=== PATIENT | male | born 2000 | race Caucasian/White ===

== ENCOUNTER → 2022-07-26 12:39 | Outpatient (CLI) | payer OTHER, SELFPAY ==
--- NOTE | ~2022-07-26 | XR_ITS ---
XR thoracic spine 3V DATE: 07/26/2022 13:03 INDICATION: Mid and low back pain. No injury. TECHNIQUE: AP, lateral, swimmer views COMPARISON: 05/11/2018 MRI thoracic spine FINDINGS: No recent fracture or dislocation or bone destruction. The thoracic pedicles are intact. No paraspinal soft tissue thickening. IMPRESSION: No significant abnormality Reviewed, dictated and finalized at location L. IMPRESSION: No significant abnormality
--- NOTE | ~2022-07-26 | XR_ITS ---
XR lumbar spine min 4V DATE: 07/26/2022 13:03 INDICATION: Mid and low back pain. No injury. TECHNIQUE: AP, lateral, coned lateral lumbosacral views. Bilateral oblique views. COMPARISON: None FINDINGS: There is moderate loss of height at L2-3 interspace and mild/moderate loss of interspace he ight at L4-5 interspace. No fracture or bone destruction. The lumbar pedicles are intact. No spondylolysis or spondylolisthesi s. The sacroiliac joints are intact. IMPRESSION: Moderate loss of interspace height at L2-3 Mild to moderate loss of interspace height at L4-5 Reviewed, dictated and finalized at location L.
== END ==
PROVIDERS: PCP Internal Medicine
DX: M53.84 Other specified dorsopathies, thoracic region (principal); M53.86 Other specified dorsopathies, lumbar region
CPT/HCPCS: 72072; 72110

== ENCOUNTER 2022-08-05 17:14 | Emergency (ER) | payer OTHER, SELFPAY ==
[2022-08-05 17:27] VITALS: BP 131/77; PULSE 128; RESP 16; TEMP 36.5; O2SAT 99
--- NOTE | 2022-08-05 17:29 | ED.URI ---
HPI - URI/Sore Throat General Chief Complaint: Upper Respiratory Infection Stated Complaint: SORE THROAT Time Seen by Provider: 08/05/22 17:30 Source: patient Mode of arrival: ambulatory Limitations: no limitations History of Present Illness HPI Narrative: 21-year-old male presents with complaint of sore throat and fatigue starting today. Patient is concerned he has strep throat. States throat hurts ?really bad ?. No other symptoms today. All systems reviewed and negative except as noted above. Related Data Home Medications Medication Instructions Recorded Confirmed famotidine 20 mg tablet 20 mg PO BID 02/15/22 08/05/22 Allergies Allergy/AdvReac Type Severity Reaction Status Date / Time Penicillins Allergy Unknown Urticaria Verified 08/05/22 17:21 Review of Systems Review of Systems: CONSTITUTIONAL: Denies fever, chills, or sweats. Reports fatigue. EYES: Denies visual changes, redness, or discharge. ENT: Denies rhinorrhea, congestion. Reports sore throat. Denies otalgia. CARDIOVASCULAR: Denies chest pain, palpitations, or edema. RESPIRATORY: Denies cough or dyspnea. GASTROINTESTINAL: Denies abdominal pain, nausea, vomiting, or diarrhea. GENITOURINARY: Denies dysuria or hematuria. SKIN: Denies rash or itching. MUSCULOSKELETAL: Denies back pain, joint pain, or myalgia. NEUROLOGIC: Denies headache, numbness, or weakness. PSYCHIATRIC: Denies anxiety or depression. All other systems reviewed are negative, except as documented in HPI. [facility], [facility] Past Medical History Medical History (Updated 08/05/22 @ 17:38 by Cuca Collazo NP) Attention deficit hyperactivity disorder (ADHD), combined type, moderate Broken back 01/2021 Chronic anxiety Chronic depression Compulsive overeating Fatigue Insomnia Substance abuse, daily use Traumatic compression fracture of L5 vertebra (02/10/21) mild compression fracture L5 vertebrae with 20% loss of vertebral height Family History Family History (Updated 02/15/22 @ 13:31 by Jolie Guido CMA) Grandparent Diabetes mellitus Family history of hypercholesterolemia Depression Hypertension Malignant neoplasm of prostate Family history of lymphoma Father Family history of hypercholesterolemia Family history of mental disorder Hypertension Mother Patient's mother is in good health Social History Social History (Updated 02/15/22 @ 13:31 by Jolie Guiod CMA) Smoking status: Never smoker Alcohol intake: former Substance use: current Substance use type: marijuana Comments At time of signature, agree with nursing past medical, surgical, social and family history. There is no relevant family history pertinent to the presenting complaint. Exam Narrative: GENERAL: This is a well-nourished, well-developed patient, in no apparent distress. HEAD: normocephalic, atraumatic. EYES: PERRL. Sclera clear/white. Vision is grossly intact. EARS: External ears normal, auditory canals clear and without drainage, TMs normal without perforation. Hearing grossly intact. NOSE: External nose normal with no obvious nasal discharge, nares without redness, no rhinorrhea. THROAT: Mucous membranes moist, erythematous, swollen. Mild exudates. Tonsils 1+ bilaterally. NECK: Neck supple, non-tender without lymphadenopathy, masses or thyromegaly. CARDIOVASCULAR: Regular rate and rhythm without murmurs, gallops, or rubs. RESPIRATORY: Clear to auscultation. Breath sounds equal bilaterally. No wheezes, rales, or rhonchi. SKIN: warm, Dry, intact with no suspicious lesions or rash, good texture and turgor. NEURO: awake, alert, and oriented to person, place and time. There were no obvious focal neurologic abnormalities. EXTREMITIES: No joint tenderness, effusion, or edema noted. Course Course Level of Care: Express Care Visit Vital Signs Vital signs: Vital Signs Temperature 36.5 C 08/05/22 17:27 Pulse Rate 128 H 08/05/22 17:27 Respiratory Rate 16 08/05/22 17
== END 2022-08-05 17:44 | disposition home or self-care (01) ==
PROVIDERS: Emergency Provider Nurse Practitioner Family; PCP Internal Medicine
DX: J02.0 Streptococcal pharyngitis (principal)
CPT/HCPCS: 87880; 99213; G0463

== ENCOUNTER 2022-08-14 16:37 | Emergency (ER) | payer OTHER, SELFPAY ==
--- NOTE | 2022-08-14 16:44 | ED.URI ---
HPI - URI/Sore Throat General Chief Complaint: Upper Respiratory Infection Stated Complaint: sore throat,headache,fatigue,nausea Time Seen by Provider: 08/14/22 16:44 Source: patient Mode of arrival: ambulatory Limitations: no limitations History of Present Illness HPI Narrative: 22-year-old male presents with complaint of sore throat, fatigue, body aches, chills, headache started today. Afebrile. Reports that he had strep approximately 1 week ago. Took azithromycin. Is now concerned that he may have mono. No known exposure but just having sore throat again concern to him. Has never had mono before. Denies nausea vomiting diarrhea. All systems reviewed and negative except as noted above. Related Data Home Medications Medication Instructions Recorded Confirmed famotidine 20 mg tablet 20 mg PO BID 02/15/22 08/05/22 Allergies Allergy/AdvReac Type Severity Reaction Status Date / Time Penicillins Allergy Unknown Urticaria Verified 08/14/22 16:48 Review of Systems Review of Systems: CONSTITUTIONAL: Denies fever. Reports chills, or sweats. EYES: Denies visual changes, redness, or discharge. ENT: Denies rhinorrhea, congestion. Reports sore throat. Denies otalgia. CARDIOVASCULAR: Denies chest pain, palpitations, or edema. RESPIRATORY: Denies cough or dyspnea. GASTROINTESTINAL: Denies abdominal pain, nausea, vomiting, or diarrhea. GENITOURINARY: Denies dysuria or hematuria. SKIN: Denies rash or itching. MUSCULOSKELETAL: Denies back pain, joint pain. Reports myalgia. NEUROLOGIC: Reports headache. Denies numbness, or weakness. PSYCHIATRIC: Denies anxiety or depression. All other systems reviewed are negative, except as documented in HPI. [facility]LY [facility] Past Medical History Medical History (Updated 08/14/22 @ 17:11 by Cuca Collazo NP) Attention deficit hyperactivity disorder (ADHD), combined type, moderate Broken back 01/2021 Chronic anxiety Chronic depression Compulsive overeating Fatigue Insomnia Substance abuse, daily use Traumatic compression fracture of L5 vertebra (02/10/21) mild compression fracture L5 vertebrae with 20% loss of vertebral height Family History Family History (Updated 02/15/22 @ 13:31 by Jolie Guido [facility]) Grandparent Diabetes mellitus Family history of hypercholesterolemia Depression Hypertension Malignant neoplasm of prostate Family history of lymphoma Father Family history of hypercholesterolemia Family history of mental disorder Hypertension Mother Patient's mother is in good health Social History Social History (Updated 02/15/22 @ 13:31 by Jolie Guido [facility]) Smoking status: Never smoker Alcohol intake: former Substance use: current Substance use type: marijuana Comments At time of signature, agree with nursing past medical, surgical, social and family history. There is no relevant family history pertinent to the presenting complaint. Exam Narrative: GENERAL: This is a well-nourished, well-developed patient. Patient is ill-appearing but in no distress. HEAD: normocephalic, atraumatic. EYES: PERRL. Sclera clear/white. Vision is grossly intact. EARS: External ears normal, auditory canals clear and without drainage, TMs normal without perforation. Hearing grossly intact. NOSE: External nose normal with no obvious nasal discharge, nares without redness, no rhinorrhea. THROAT: Mucous membranes moist, erythematous to posterior pharynx with swelling. No exudates. NECK: Neck supple, non-tender without lymphadenopathy, masses or thyromegaly. CARDIOVASCULAR: Regular rate and rhythm without murmurs, gallops, or rubs. RESPIRATORY: Clear to auscultation. Breath sounds equal bilaterally. No wheezes, rales, or rhonchi. SKIN: warm, Dry, intact with no suspicious lesions or rash, good texture and turgor. NEURO: awake, alert, and oriented to person, place and time. There were no obvious focal neurologic abnormalities. EXTREMITIES: No joint tenderness, effu
[2022-08-14 16:45] VITALS: BP 128/94; PULSE 100; RESP 16; TEMP 37.2; O2SAT 100
== END 2022-08-14 17:12 | disposition home or self-care (01) ==
PROVIDERS: Emergency Provider Nurse Practitioner Family; PCP Internal Medicine
DX: J02.9 Acute pharyngitis, unspecified (principal); F12.90 Cannabis use, unspecified, uncomplicated
CPT/HCPCS: 36416; 86308; 87081; 87804; 87880; 99213; G0463

== ENCOUNTER 2022-08-16 15:19 | Emergency (ER) | payer OTHER, SELFPAY ==
[2022-08-16 15:27] VITALS: BP 152/93; PULSE 100; RESP 16; TEMP 36.4; O2SAT 100
--- NOTE | 2022-08-16 15:59 | ED.URI ---
HPI - URI/Sore Throat General Chief Complaint: Upper Respiratory Infection Stated Complaint: HEADACHE/TIRED/SORE THROAT/NAUSEA/BODY ACHES Time Seen by Provider: 08/16/22 15:59 Source: patient and RN notes reviewed Mode of arrival: ambulatory Limitations: no limitations History of Present Illness HPI Narrative: 22-year-old male presents with concern for 2 week history of sore throat, headache, nausea, body aches. Reports he was treated with azithromycin for positive strep test the beginning of his illness, his symptoms did not improve, he was then started on cefdinir. Reports he is assisted through that in his symptoms are not improving. He reports he has been taking antihistamine without relief. 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 MD elicited complaint: sore throat and nasal congestion Related Data Home Medications Medication Instructions Recorded Confirmed famotidine 20 mg tablet 20 mg PO BID 02/15/22 08/05/22 Allergies Allergy/AdvReac Type Severity Reaction Status Date / Time Penicillins Allergy Unknown Urticaria Verified 08/14/22 16:48 Review of Systems Review of Systems: CONSTITUTIONAL: Denies malaise, chills, sweats, or fever. Reports fatigue EYES: Denies visual changes, redness, or discharge. ENT: Reports rhinorrhea, congestion, sore throat. Denies sinus pain, otalgia CARDIOVASCULAR: Denies chest pain, palpitations, or edema. RESPIRATORY: Reports cough. Denies dyspnea. GASTROINTESTINAL: Denies abdominal pain, nausea, vomiting, diarrhea SKIN: Denies rash or itching. MUSCULOSKELETAL: Reports myalgia. NEUROLOGIC: Reports headache. All systems reviewed & are unremarkable except as noted in HPI and below PMFSH Past Medical History Medical History (Updated 08/16/22 @ 16:26 by Rosa Malcolm NP) Attention deficit hyperactivity disorder (ADHD), combined type, moderate Broken back 01/2021 Chronic anxiety Chronic depression Compulsive overeating Fatigue Insomnia Substance abuse, daily use Traumatic compression fracture of L5 vertebra (02/10/21) mild compression fracture L5 vertebrae with 20% loss of vertebral height Family History Family History (Updated 02/15/22 @ 13:31 by Jolie Guido CMA) Grandparent Diabetes mellitus Family history of hypercholesterolemia Depression Hypertension Malignant neoplasm of prostate Family history of lymphoma Father Family history of hypercholesterolemia Family history of mental disorder Hypertension Mother Patient's mother is in good health Social History Social History (Updated 02/15/22 @ 13:31 by Jolie Guido [facility]) Smoking status: Never smoker Alcohol intake: former Substance use: current Substance use type: marijuana Comments At time of signature, agree with nursing past medical, surgical, social and family history. There is no relevant family history pertinent to the presenting complaint Exam Narrative: GENERAL: Mild toxic appearing and in no acute distress. HEAD: Normocephalic EYES: PERRLA, conjunctivae clear ENT: Nares clear, turbinates edematous and erythematous, clear discharge. Mucous membranes moist. TM pearly sorensen with dull light reflex bilaterally; no tragal tenderness. Oropharynx not erythematous without lesions. Tonsils not enlarged and without exudate, no drooling, no hoarseness, no trismus, uvula midline. NECK: Supple. No lymphadenopathy CHEST: Clear to auscultation, breath sounds equal. No wheezing, rhonchi, rales, or stridor. No respiratory distress, speaks in full sentences. HEART: Regular rate and rhythm. No murmur heard. SKIN: Warm, dry, no rash. NEURO: Alert and oriented x3. PSYCH: Normal mood and affect Course Course Emergency Course: Patient is aware of diagnosis, understands and agrees to treatment plan. Anticipatory guidance given. Patient agrees to follow-up as directed and is aware of reasons to seek care at the emergency department. Portions of this record may have been created with voice recognition
== END 2022-08-16 16:36 | disposition home or self-care (01) ==
PROVIDERS: Emergency Provider Nurse Practitioner; PCP Internal Medicine
DX: J32.9 Chronic sinusitis, unspecified (principal); J40 Bronchitis, not specified as acute or chronic; Z20.822 Contact with and (suspected) exposure to COVID-19
CPT/HCPCS: 36416; 86308; 87426; 99213; C9803; G0463

== ENCOUNTER 2022-11-29 09:01 | Emergency (ER) | payer OTHER, SELFPAY ==
--- NOTE | 2022-11-29 09:12 | ED.URI ---
HPI - URI/Sore Throat General Chief Complaint: Upper Respiratory Infection Stated Complaint: Sinus infection Source: patient and RN notes reviewed History of Present Illness HPI Narrative: 22 yo M presents to urgent care with complaints of congestion, bilateral ear pressure and popping. Pt states his symptoms started 2 days ago and he had a sore throat at that time but denies any today. Reports some diarrhea. Reports more of a cough and some SOB but states he has asthma and takes an inhaler which helps with this. Denies any fevers, chills, N/V, or chest pain. Pt has been taking Dayquil and Nyquil at home. Related Data Home Medications Medication Instructions Recorded Confirmed famotidine 20 mg tablet 20 mg PO BID 02/15/22 11/29/22 Allergies Allergy/AdvReac Type Severity Reaction Status Date / Time Penicillins Allergy Unknown Urticaria Verified 11/29/22 09:20 Review of Systems Review of Systems: Pertinent positives and pertinent negatives per HPI. [facility] Past Medical History Medical History (Updated 11/29/22 @ 09:24 by Consuelo Paredes, ROSALVA) Attention deficit hyperactivity disorder (ADHD), combined type, moderate Broken back 01/2021 Chronic anxiety Chronic depression Compulsive overeating Essential hypertension Fatigue History of substance abuse Hypogonadism male Insomnia Obesity (BMI 30.0-34.9) Substance abuse, daily use Traumatic compression fracture of L5 vertebra (02/10/21) mild compression fracture L5 vertebrae with 20% loss of vertebral height Family History Family History (Reviewed 10/24/22 @ 14:58 by Colleen Jackson [facility] [address]) Grandparent Diabetes mellitus Family history of hypercholesterolemia Depression Hypertension Malignant neoplasm of prostate Family history of lymphoma Father Family history of hypercholesterolemia Family history of mental disorder Hypertension Mother Patient's mother is in good health Social History Social History (Reviewed 10/24/22 @ 14:58 by Colleen Jackson [facility]) Smoking status: Never smoker Alcohol intake: former Substance use: current Substance use type: marijuana Lack of Transportation: No Lack of Food: Never True Current Housing: I Have Housing Concerned About Future Housing: No Difficulty Paying Gas/Electric Bills: No Difficulty Paying for Meds: No Currently Unemployed: No Education: Bachelor's Degree Difficulty w/ Childcare or Family Care: No Comments At the time of my signature, I reviewed and agree with the nursing past medical, surgical, social, and family history. There is no relevant family history pertinent to the patient complaint. Exam Narrative: GENERAL: This is a well-nourished, well-developed patient, in no apparent distress. HEAD: normocephalic, atraumatic. EYES: Sclera clear/white. Vision is grossly intact. EARS: External ears normal, auditory canals clear and without drainage, TMs normal without perforation. Hearing grossly intact. NOSE: External nose normal with no obvious nasal discharge, nares without redness, no rhinorrhea. THROAT: Mucous membranes moist, posterior pharynx clear. NECK: Neck supple, non-tender without lymphadenopathy, masses or thyromegaly. CARDIOVASCULAR: Regular rate and rhythm without murmurs, gallops, or rubs. RESPIRATORY: Clear to auscultation. Breath sounds equal bilaterally. No wheezes, rales, or rhonchi. GASTROINTESTINAL: Abdomen soft, non-tender, nondistended. Bowel sounds are active. No hepato-splenomegaly, or palpable masses. No guarding. SKIN: warm, intact with no suspicious lesions or rash, good texture and turgor. NEURO: awake, alert, and oriented to person, place and time. There were no obvious focal neurologic abnormalities. Course Course Level of Care: Express Care Visit Vital Signs Vital signs: reviewed MDM - URI/Sore Throat MDM Narrative Medical decision making narrative: Viral illness may last between 7-12days; antibiotic is NOT recommende
[2022-11-29 09:13] VITALS: BP 152/91; PULSE 99; RESP 16; TEMP 36.2; O2SAT 97
[2022-11-29 09:15] VITALS: BP 139/84
== END 2022-11-29 09:26 | disposition home or self-care (01) ==
PROVIDERS: Emergency Provider Nurse Practitioner Family; PCP Internal Medicine
DX: J06.9 Acute upper respiratory infection, unspecified (principal); I10 Essential (primary) hypertension; E66.9 Obesity, unspecified; Z68.23 Body mass index [BMI] 23.0-23.9, adult; F12.90 Cannabis use, unspecified, uncomplicated
CPT/HCPCS: 99213; G0463

== ENCOUNTER 2023-01-18 08:25 | Outpatient (CLI) | payer OTHER, SELFPAY ==
--- NOTE | 2023-01-31 17:16 | WPDHOMESLEEP ---
Sleep Study - Home Unattended Date of Study: 01/18/23 Ordering Provider: Yovany Naik DO Interpreting Provider: Lenora York DO Home Sleep Study Type: Watch PAT Height: 1.91 m Weight: 120.202 kg Body Mass Index: 33.1 Neck Circumference (inches): 17 Claunch: 16 Reason for Sleep Study Daytime hypersomnia Sleep History The patient is a 22-year-old male that had a sleep study ordered by his primary care physician for evaluation of sleep apnea. The patient constantly awakens from sleep short of breath. He frequently awakens at night with heartburn, belching or cough. He denies snoring. He occasionally has trouble sleeping when he has a cold. He denies waking up gasping for air throughout the night. He frequently has breathing problems at night observed by himself or others. He frequently sweats excessively at night. He occasionally has heart palpitations or irregular heartbeats during the night. He frequently falls asleep during the day but never while driving. He denies cataplexy. He frequently has trouble at school or work due to sleepiness. He rarely feels unable to move while waking up or falling asleep. He constantly experiences vivid dreamlike scenes upon awakening or falling asleep. He occasionally feels afraid of going to sleep. He frequently has nightmares and frequently remembers his dreams. He frequently has thoughts racing through his mind. He rarely feels sad or depressed. He constantly has anxiety. He constantly has muscular tension. He occasionally notices parts of his body jerk. He occasionally kicks during the night. He rarely has crawling and aching feelings in his legs and rarely has leg pain during the night. He is unsure if he grinds his teeth during sleep. He occasionally awakens with morning jaw pain. He is constantly bothered by pain during the day but rarely awakened by pain during the night. He frequently wakes up feeling stiff in the morning. He occasionally wakes up with sore or achy muscles. He frequently wakes up with pain in the neck, spine or other joints. He goes to bed between 10-10:30 p.m. on weekdays and at 11:00 p.m. on the weekends. It takes him 20 minutes to fall asleep. He wakes up twice throughout the night to urinate and use nicotine. He is able to fall back asleep within 5 minutes are up to an hour. He wakes up at 6:00 a.m. on weekdays and at 6:30 a.m. on the weekends. He typically gets 6-9 hours of sleep per night. He will stay in bed for 30-60 minutes after waking up in the morning. He currently lives with his parents. He denies consuming any caffeinated beverages within 2 hours of bedtime. He denies engaging in physical exercise before bedtime. He will occasionally read before falling asleep. He denies watching television before falling asleep. He will take naps in the afternoon or the evening but they are not refreshing. He consumes 2-3 caffeinated beverages per day. He currently uses tobacco free nicotine patches. He denies alcohol and recreational drug use. [facility] Past Medical History Medical History Attention deficit hyperactivity disorder (ADHD), combined type, moderate Broken back 01/2021 Chronic anxiety Chronic depression Compulsive overeating Essential hypertension Fatigue History of substance abuse Hypogonadism male Insomnia Obesity (BMI 30.0-34.9) Substance abuse, daily use Traumatic compression fracture of L5 vertebra (02/10/21) mild compression fracture L5 vertebrae with 20% loss of vertebral height Family History Family History Grandparent Diabetes mellitus Family history of hypercholesterolemia Depression Hypertension Malignant neoplasm of prostate Family history of lymphoma Father Family history of hypercholesterolemia Family history of mental disorder Hypertension Mother Patient's mother is in good he
[2023-01-31 17:24] VITALS: BMI 33.1
== END 2023-01-27 12:10 | disposition home or self-care (01) ==
LOC: ANHCSM 08:29
PROVIDERS: PCP Internal Medicine; Visit Provider Internal Medicine
DX: G47.19 Other hypersomnia (principal); R53.83 Other fatigue; G47.33 Obstructive sleep apnea (adult) (pediatric)
CPT/HCPCS: 95800

== ENCOUNTER 2023-01-20 10:13 | Emergency (ER) | payer OTHER, SELFPAY ==
--- NOTE | 2023-01-20 10:24 | ED.URI ---
HPI - URI/Sore Throat General Chief Complaint: Upper Respiratory Infection Stated Complaint: Strep symptoms Source: patient and RN notes reviewed History of Present Illness HPI Narrative: 22 yo M presents to urgent care with complaints of a sore throat, congestion, and SOB since yesterday. States his SOB is constant. Pt states he has had a right ear discomfort for weeks. Denies any known fevers or chills but admits to feeling more sweaty than normal. Denies any N/V/D, chest pain, or other symptoms. Pt states he took his inhaler this morning for his SOB with minimal relief. Related Data Home Medications Medication Instructions Recorded Confirmed clomiphene citrate 50 mg tablet 50 mg PO EVERY OTHER DAY 01/20/23 01/20/23 (Clomid) esomeprazole magnesium 20 mg 20 mg PO DAILY 01/20/23 01/20/23 capsule,delayed release (Nexium) loratadine 10 mg tablet (Claritin) 10 mg PO DAILY 01/20/23 01/20/23 Allergies Allergy/AdvReac Type Severity Reaction Status Date / Time Penicillins Allergy Unknown Urticaria Verified 01/20/23 10:23 Review of Systems Review of Systems: Pertinent positives and pertinent negatives per HPI. [facility] Past Medical History Medical History (Updated 01/20/23 @ 10:42 by Consuelo Paredes APRN) Attention deficit hyperactivity disorder (ADHD), combined type, moderate Broken back 01/2021 Chronic anxiety Chronic depression Compulsive overeating Essential hypertension Fatigue History of substance abuse Hypogonadism male Insomnia Obesity (BMI 30.0-34.9) Substance abuse, daily use Traumatic compression fracture of L5 vertebra (02/10/21) mild compression fracture L5 vertebrae with 20% loss of vertebral height Family History Family History Grandparent Diabetes mellitus Family history of hypercholesterolemia Depression Hypertension Malignant neoplasm of prostate Family history of lymphoma Father Family history of hypercholesterolemia Family history of mental disorder Hypertension Mother Patient's mother is in good health Social History Social History Smoking status: Never smoker Alcohol intake: former Substance use: current Substance use type: marijuana Lack of Transportation: No Lack of Food: Never True Current Housing: I Have Housing Concerned About Future Housing: No Difficulty Paying Gas/Electric Bills: No Difficulty Paying for Meds: No Currently Unemployed: No Education: Bachelor's Degree Difficulty w/ Childcare or Family Care: No Comments At the time of my signature, I reviewed and agree with the nursing past medical, surgical, social, and family history. There is no relevant family history pertinent to the patient complaint. Exam Narrative: GENERAL: This is a well-nourished, well-developed patient, in no apparent distress. HEAD: normocephalic, atraumatic. EYES: Sclera clear/white. Vision is grossly intact. EARS: External ears normal, auditory canals clear and without drainage, TMs normal without perforation. Hearing grossly intact. NOSE: External nose normal with no obvious nasal discharge, nares without redness, no rhinorrhea. THROAT: Mucous membranes moist, posterior pharynx clear. NECK: Neck supple, non-tender without lymphadenopathy, masses or thyromegaly. CARDIOVASCULAR: Regular rate and rhythm without murmurs, gallops, or rubs. RESPIRATORY: Clear to auscultation. Breath sounds equal bilaterally. No wheezes, rales, or rhonchi. SKIN: warm, intact with no suspicious lesions or rash, good texture and turgor. NEURO: awake, alert, and oriented to person, place and time. There were no obvious focal neurologic abnormalities. Course Course Level of Care: Express Care Visit Vital Signs Vital signs: Vital Signs Temperature 96.7 F L 01/20/23 10:31 Pulse Rate 114 H 01/20/23 10:31 Respiratory Rate 16 01/20/23 1
[2023-01-20 10:31] VITALS: BP 147/95; PULSE 114; RESP 16; TEMP 35.9; O2SAT 98
== END 2023-01-20 10:45 | disposition home or self-care (01) ==
PROVIDERS: Emergency Provider Nurse Practitioner Family; PCP Internal Medicine
DX: J02.9 Acute pharyngitis, unspecified (principal); J45.909 Unspecified asthma, uncomplicated; F12.90 Cannabis use, unspecified, uncomplicated; I10 Essential (primary) hypertension; E66.9 Obesity, unspecified; Z68.33 Body mass index [BMI] 33.0-33.9, adult
CPT/HCPCS: 87081; 87880; 99213; G0463

== ENCOUNTER 2023-01-30 11:30 | Emergency (ER) | payer OTHER, SELFPAY ==
[2023-01-30 11:39] VITALS: BP 120/97; PULSE 105; RESP 18; TEMP 36.3; O2SAT 99
--- NOTE | 2023-01-30 12:38 | ED.URI ---
HPI - URI/Sore Throat General Chief Complaint: Upper Respiratory Infection Stated Complaint: Headache;Sore Throat;Body ache Time Seen by Provider: 01/30/23 12:30 Source: patient, RN notes reviewed and old records reviewed Mode of arrival: ambulatory Limitations: no limitations History of Present Illness HPI Narrative: 22 year old male who presents to [facility] care with complaints of headache, sore throat and body aches and fatigue since Monday. Patient reports that he was seen previously on 01/20/2023 and was tested for strep with it being negative, received some prednisone and took medication and felt better then his symptoms started again yesterday. He reports that he has been taking Tylenol,Ibuprofen Claritin and Sudafed daily. MD elicited complaint: sore throat and other (headache, fatigue) Onset (ago): day(s) (day 2) Pain scale (0-10): 3 Able to tolerate fluids by mouth: Yes Treatments prior to arrival: acetaminophen, ibuprofen and other (claritin and sudafed) Related Data Home Medications Medication Instructions Recorded Confirmed clomiphene citrate 50 mg tablet 50 mg PO EVERY OTHER DAY 01/20/23 01/30/23 (Clomid) esomeprazole magnesium 20 mg 20 mg PO DAILY 01/20/23 01/30/23 capsule,delayed release (Nexium) loratadine 10 mg tablet (Claritin) 10 mg PO DAILY 01/20/23 01/30/23 Allergies Allergy/AdvReac Type Severity Reaction Status Date / Time Penicillins Allergy Unknown Urticaria Verified 01/30/23 11:41 Review of Systems Review of Systems: CONSTITUTIONAL:Reports malaise, chills, sweats, or fever. EYES: Denies visual changes, redness, or discharge. ENT: Reports rhinorrhea, congestion, sinus pain, no otalgia and positive sore throat. CARDIOVASCULAR: Denies chest pain, palpitations, or edema. RESPIRATORY: Reports cough.? Denies dyspnea. GASTROINTESTINAL: Denies abdominal pain, nausea, vomiting, diarrhea SKIN: Denies rash or itching. MUSCULOSKELETAL: reports myalgia. NEUROLOGIC:reports headache. All systems reviewed & are unremarkable except as noted in HPI and below PMFSH Past Medical History Medical History Attention deficit hyperactivity disorder (ADHD), combined type, moderate Broken back 01/2021 Chronic anxiety Chronic depression Compulsive overeating Essential hypertension Fatigue History of substance abuse Hypogonadism male Insomnia Obesity (BMI 30.0-34.9) Substance abuse, daily use Traumatic compression fracture of L5 vertebra (02/10/21) mild compression fracture L5 vertebrae with 20% loss of vertebral height Family History Family History Grandparent Diabetes mellitus Family history of hypercholesterolemia Depression Hypertension Malignant neoplasm of prostate Family history of lymphoma Father Family history of hypercholesterolemia Family history of mental disorder Hypertension Mother Patient's mother is in good health Social History Social History Smoking status: Never smoker Alcohol intake: former Substance use: current Substance use type: marijuana Lack of Transportation: No Lack of Food: Never True Current Housing: I Have Housing Concerned About Future Housing: No Difficulty Paying Gas/Electric Bills: No Difficulty Paying for Meds: No Currently Unemployed: No Education: Bachelor's Degree Difficulty w/ Childcare or Family Care: No Comments At time of signature, agree with nursing past medical, surgical, social and family history. There is no relevant family history pertinent to the presenting complaint Exam Narrative: GENERAL: Well-appearing, well-nourished, and in no acute distress. HEAD: Normocephalic EYES: PERRLA, conjunctivae clear ENT: Nares clear, turbinates edematous and erythematous, clear discharge. Mucous membranes moist. TM pearly sorensen with
== END 2023-01-30 13:08 | disposition home or self-care (01) ==
PROVIDERS: Emergency Provider Registered Nurse; PCP Internal Medicine
DX: J03.90 Acute tonsillitis, unspecified (principal); I10 Essential (primary) hypertension; E66.9 Obesity, unspecified; Z68.33 Body mass index [BMI] 33.0-33.9, adult; Z20.822 Contact with and (suspected) exposure to COVID-19
CPT/HCPCS: 36416; 86308; 87081; 87426; 87804; 87880; 99213; C9803; G0463

== ENCOUNTER 2023-04-18 10:42 | Emergency (ER) | payer OTHER, SELFPAY ==
[2023-04-18 10:57] VITALS: BP 135/82; PULSE 123; RESP 16; TEMP 36.3; O2SAT 100
--- NOTE | 2023-04-18 11:38 | ED.URI ---
HPI - URI/Sore Throat General Chief Complaint: Upper Respiratory Infection Stated Complaint: Sinus infection symptoms Time Seen by Provider: 04/18/23 11:39 Source: patient, RN notes reviewed and old records reviewed Mode of arrival: ambulatory Limitations: no limitations History of Present Illness HPI Narrative: 22-year-old male presents to the [facility] complaints sinus congestion since or Monday. Has taken DayQuil last night. No other treatment prior to arrival. Related Data Home Medications Medication Instructions Recorded Confirmed clomiphene citrate 50 mg tablet 50 mg PO EVERY OTHER DAY 01/20/23 03/27/23 (Clomid) esomeprazole magnesium 20 mg 20 mg PO DAILY 01/20/23 03/27/23 capsule,delayed release (Nexium) loratadine 10 mg tablet (Claritin) 10 mg PO DAILY 01/20/23 03/27/23 Allergies Allergy/AdvReac Type Severity Reaction Status Date / Time Penicillins Allergy Unknown Urticaria Verified 03/27/23 14:33 Review of Systems Review of Systems: All systems reviewed & are unremarkable except as noted in HPI and below Constitutional: Constitutional: Reports no additional constitutional complaints Eyes: Eyes: Reports no additional eye complaints ENT: Reports as per HPI, Reports nasal congestion and Reports sinus pressure Cardiovascular: Cardiovascular: Reports no additional cardiovascular complaints, Denies chest pain and Denies dyspnea Respiratory: Respiratory: Reports no additional respiratory complaints, Denies chest congestion, Denies cough and Denies dyspnea Gastrointestinal: Gastrointestinal: Reports no additional gastrointestinal complaints, Denies abdominal pain, Denies nausea and Denies vomiting Musculoskeletal: Musculoskeletal: Reports no additional musculoskeletal complaints Integumentary/Breasts: Skin/Breast: Reports system reviewed and no additional complaints, except as docu Neurologic: Reports system reviewed and no additional complaints, except as documented Psychiatric: Psychiatric: Reports no additional psychiatric complaints Allergic/Immunologic: Allergic/Immunologic: Reports no additional allergic/immunologic complaints PMFSH Past Medical History Medical History Attention deficit hyperactivity disorder (ADHD), combined type, moderate Broken back 01/2021 Chronic anxiety Chronic depression Compulsive overeating Essential hypertension Fatigue History of substance abuse Hypogonadism male Insomnia Obesity (BMI 30.0-34.9) Substance abuse, daily use Traumatic compression fracture of L5 vertebra (02/10/21) mild compression fracture L5 vertebrae with 20% loss of vertebral height Family History Family History Grandparent Diabetes mellitus Family history of hypercholesterolemia Depression Hypertension Malignant neoplasm of prostate Family history of lymphoma Father Family history of hypercholesterolemia Family history of mental disorder Hypertension Mother Patient's mother is in good health Social History Social History Social History: Caffeine- daily Smoking status: Never smoker Alcohol intake: former Substance use: former Substance use type: does not use Last use: 9 months Lack of Transportation: No Lack of Food: Never True Current Housing: I Have Housing Concerned About Future Housing: No Difficulty Paying Gas/Electric Bills: No Difficulty Paying for Meds: No Currently Unemployed: No Education: Bachelor's Degree Difficulty w/ Childcare or Family Care: No Comments At the time of my signature, I reviewed and agree with the nursing past medical, surgical, social, and family history. There is no relevant family history pertinent to the patient complaint. Exam Const: General: cooperative, healthy appearing, comfortable, no acute distress, well developed, alert an
== END 2023-04-18 11:56 | disposition home or self-care (01) ==
PROVIDERS: Emergency Provider Nurse Practitioner; PCP Internal Medicine
DX: J06.9 Acute upper respiratory infection, unspecified (principal); I10 Essential (primary) hypertension; Z20.822 Contact with and (suspected) exposure to COVID-19
CPT/HCPCS: 87081; 87426; 87804; 87880; 99213; C9803; G0463

== ENCOUNTER 2023-07-31 14:35 | Emergency (ER) | payer OTHER, SELFPAY ==
--- NOTE | 2023-07-31 14:42 | ED.GENADULT ---
HPI - General Adult General Chief complaint: Upper Respiratory Infection Stated complaint: Diarrhea/Congestion Time Seen by Provider: 07/31/23 14:44 Source: patient, RN notes reviewed and old records reviewed Mode of arrival: ambulatory Limitations: no limitations History of Present Illness HPI narrative: 22-year-old male presents to the [facility] with complaints of ?flu-like symptoms. ?. Patient reports fatigue, chills, runny nose. Denies sore throat. This started either Monday or Monday, 2-3 days ago. Has taken DayQuil Patient is also reporting 4 episodes of diarrhea today. No treatment prior to arrival. Is maintaining secretions and drinking water. Related Data Home Medications Medication Instructions Recorded Confirmed semaglutide 0.25 mg or 0.5 mg (2 0.25 mg subcut WEEKLY 07/18/23 07/31/23 mg/3 mL) subcutaneous pen injector albuterol sulfate 90 mcg/actuation 2 inh inhalation DIRECTED 07/31/23 07/31/23 aerosol inhaler budesonide-formoterol HFA 160 1 inh inhalation BID 07/31/23 07/31/23 mcg-4.5 mcg/actuation aerosol inhaler (Symbicort) Allergies Allergy/AdvReac Type Severity Reaction Status Date / Time Penicillins Allergy Unknown Urticaria Verified 07/31/23 14:58 Review of Systems Review of Systems: All systems reviewed & are unremarkable except as noted in HPI and below Constitutional: Constitutional: Reports as per HPI, Reports no additional constitutional complaints, Reports body ache(s), Reports chills and Reports fatigue Eyes: Eyes: Reports no additional eye complaints ENT: Reports system reviewed and no additional complaints, except as documented Cardiovascular: Cardiovascular: Reports no additional cardiovascular complaints, Denies chest pain and Denies dyspnea Respiratory: Respiratory: Reports no additional respiratory complaints, Denies chest congestion, Denies cough and Denies dyspnea Gastrointestinal: Gastrointestinal: Reports no additional gastrointestinal complaints, Denies abdominal pain, Reports diarrhea, Denies nausea and Denies vomiting Musculoskeletal: Musculoskeletal: Reports no additional musculoskeletal complaints Integumentary/Breasts: Skin/Breast: Reports system reviewed and no additional complaints, except as docu Neurologic: Reports system reviewed and no additional complaints, except as documented Psychiatric: Psychiatric: Reports no additional psychiatric complaints Allergic/Immunologic: Allergic/Immunologic: Reports no additional allergic/immunologic complaints PMFSH Past Medical History Medical History Attention deficit hyperactivity disorder (ADHD), combined type, moderate Broken back 01/2021 Chronic anxiety Chronic depression Compulsive overeating Essential hypertension Fatigue History of substance abuse Hypogonadism male Insomnia Obesity (BMI 30.0-34.9) Substance abuse, daily use Traumatic compression fracture of L5 vertebra (02/10/21) mild compression fracture L5 vertebrae with 20% loss of vertebral height Family History Family History Grandparent Diabetes mellitus Family history of hypercholesterolemia Depression Hypertension Malignant neoplasm of prostate Family history of lymphoma Father Family history of hypercholesterolemia Family history of mental disorder Hypertension Mother Patient's mother is in good health Social History Social History Social History: Caffeine- daily Smoking status: Never smoker Alcohol intake: former Substance use: former Substance use type: does not use Last use: 9 months Do You Feel Safe in your Home?: Yes Lack of Transportation: No Lack of Food: Never True Current Housing: I Have Housing Concerned About Future Housing: No Difficulty Paying Gas/Electric Bills: No Difficulty Paying for Meds: No Currently
[2023-07-31 14:43] VITALS: BP 157/92; PULSE 91; RESP 18; TEMP 36.2; O2SAT 98
== END 2023-07-31 15:19 | disposition home or self-care (01) ==
PROVIDERS: Emergency Provider Nurse Practitioner; PCP Internal Medicine
DX: J06.9 Acute upper respiratory infection, unspecified (principal); R19.7 Diarrhea, unspecified; Z20.822 Contact with and (suspected) exposure to COVID-19; I10 Essential (primary) hypertension; E66.9 Obesity, unspecified; Z68.35 Body mass index [BMI] 35.0-35.9, adult
CPT/HCPCS: 87426; 87804; 99213; G0463